=== PATIENT | male | born 1980 | race Two or more races ===

== ENCOUNTER 2024-08-24 10:45 | Emergency (ER) | payer OTHER ==
[~2024-08-24] VITALS: Ht 165.1 cm; Wt 72.6 kg
[2024-08-24] MEDS ORDERED: 0.9 % SODIUM CHLORIDE 1,000 ML IV ONE (11:00)
[2024-08-24] MEDS ORDERED: FAMOtidine 10 MG/ML (4ML VIAL) IV ONE (11:00)
[2024-08-24] MEDS ORDERED: ONDANSETRON HCL 2 MG/ML VIAL IV ONE (11:00)
[2024-08-24] MEDS ORDERED: ONDANSETRON HCL 2 MG/ML VIAL ONE (11:04)
[2024-08-24] MEDS ORDERED: FAMOTIDINE/PF 20 MG/2 ML VIAL ONE (11:04)
[2024-08-24] MEDS ORDERED: PEPCID AC20 MG PO (12:05)
[2024-08-24] MEDS ORDERED: ZOFRAN8 MG PO (12:05)
== END 2024-08-24 12:25 | disposition home or self-care (01) ==
LOC: ER 10:47
DX: A05.9 Bacterial foodborne intoxication, unspecified (principal)

== ENCOUNTER 2024-09-03 17:22 | Emergency (ER) | payer OTHER ==
[~2024-09-03] VITALS: Ht 165.1 cm; Wt 68.0 kg
[~2024-09-03 17:22] MED LIST: PEPCID AC20 MG PO; ZOFRAN8 MG PO
[2024-09-03] MEDS ORDERED: DEXAMETHASONE SODIUM PHOSPHATE 4 MG/ML VIAL IM STA (18:41)
[2024-09-03] MEDS ORDERED: ORPHENADRINE CITRATE 30 MG/ML AMPUL IM STA (18:42)
[2024-09-03] MEDS ORDERED: KETOROLAC TROMETHAMINE 60 MG VIAL IM STA (18:42)
[2024-09-03] MEDS ORDERED: OxyCODONE HCL/APAP UD (PERCOCET) PO STA (18:43)
[2024-09-03] MEDS ORDERED: KETOROLAC TROMETHAMINE 60 MG VIAL IM ONE (19:09)
[2024-09-03] MEDS ORDERED: ORPHENADRINE CITRATE 30 MG/ML AMPUL ONE (19:09)
[2024-09-03] MEDS ORDERED: DEXAMETHASONE SODIUM PHOSPHATE 4 MG/ML VIAL ONE (19:09)
== END 2024-09-03 19:30 | disposition home or self-care (01) ==
LOC: ER 17:24
DX: M54.42 Lumbago with sciatica, left side (principal)